=== PATIENT | female | born 1970 | race Hispanic/Latino ===

== ENCOUNTER → 2021-08-31 | Outpatient (CLI) | payer OTHER ==
[~2021-08-31] MED LIST: BIOTIN 800 MCG1 EACH PO; LEVOTHYROXINE50 MCG PO; OMEPRAZOLE40 MG PO; PREVAGEN PO; PROBIOTIC DIGE1 EACH PO; TEJOCOTE ROOT PO; [UNRECOGNIZED DRUG - OTHER] PO; [UNRECOGNIZED DRUG - OTHER] PO
== END ==
LOC: LAB 09:30 → EDSTATUS 09-05 09:30
PROVIDERS: ATTEND Internal Medicine Gastroenterology
DX: Z01.812 Encounter for preprocedural laboratory examination (principal); R11.0 Nausea; Z20.822 Contact with and (suspected) exposure to COVID-19
CPT/HCPCS: 0223U; 36415; 93005